=== PATIENT | male | born 1950 | race Caucasian/White ===

== ENCOUNTER 2023-03-07 13:29 | Emergency (ER) | payer OTHER ==
[2023-03-07] MEDS ORDERED: ONDANSETRON 4 MG/2 ML VIAL ONE (14:02)
[2023-03-07] MEDS ORDERED: NA CHLORIDE 0.9% 1,000 ML ONE (14:03)
[2023-03-07 14:11] LABS: Absolute Lymphocytes (CBC) 2.4 K/uL (0.7-4.9); Hematocrit 40.5 % (39.6-49.0); Lymphocytes % 31.6 % (15.3-44.8); MCV 92.6 fL (80-100); MPV 7.2 fL (7.6-11.3); RBC Red Blood Cell Count 4.37 M/uL (4.33-5.43)
--- NOTE | 2023-03-07 14:12 | RAD REPORT ---
EXAM DESCRIPTION: CT - Head Brain Wo Cont - 03/07/2023 2:07 pm CLINICAL HISTORY: SYNCOPE Headache, drowsiness, syncope COMPARISON: Head Brain Wo Cont dated 04/24/2017; HEAD BRAIN W O CONTRAST dated 03/17/2014 TECHNIQUE: All CT scans are performed using dose optimization technique as appropriate and may inclu de automated exposure control or mA/KV adjustment according to patient size. FINDINGS: No intracranial hemorrhage, hydrocephalus or extra-axial fluid collection.No areas of brai n edema or evidence of midline shift. The paranasal sinuses and mastoids are clear. The calvarium is intact. IMPRESSION: No acute intracranial abnormality.
[2023-03-07 14:26] LABS: Albumin 3.6 g/dL (3.4-5.0); Bilirubin Direct 0.1 mg/dL (0-0.2); Bilirubin Indirect, Calculated 0.5 mg/dL (0.2-0.8); Bilirubin Total 0.6 mg/dL (0.2-1.0); Magnesium 2.1 mg/dL (1.6-2.4); Potassium 3.9 mEq/L (3.5-5.1); Protein, Total 6.8 g/dL (6.4-8.2); Troponin High Sensitivity 3.2 pg/mL (<58.9)
--- NOTE | 2023-03-07 14:51 | ER ---
Nurse's Notes [facility] Name: Patrick Jones Age: 72 yrs Sex: Male : 1950 Arrival Date: 03/07/2023 Time: 13:29 Bed 2 Private MD: Diagnosis: Near syncope, lightheadedness, nausea Presentation: 03/07 13:37 Chief complaint: EMS states: pt was at lunch and started to feel like he was going to iw pass out , felt very nauseous, has had similar episodes in the past due to "orthostatic problems". Coronavirus screen: At this time, the client does not indicate any symptoms associated with coronavirus-19. Ebola Screen: Patient negative for fever greater than or equal to 101.5 degrees Fahrenheit, and additional compatible Ebola Virus Disease symptoms Patient denies exposure to infectious person. Patient denies travel to an Ebola-affected area in the 21 days before illness onset. No symptoms or risks identified at this time. Initial Sepsis Screen: Does the patient meet any 2 criteria? No. Patient's initial sepsis screen is negative. Does the patient have a suspected source of infection? No. Patient's initial sepsis screen is negative. Risk Assessment: Do you want to hurt yourself or someone else? Patient reports no desire to harm self or others. Onset of symptoms was March 07, 2023. 13:37 Method Of Arrival: EMS: [facility] 13:37 Acuity: SAMIR 3 iw Triage Assessment: 15:06 GI: Reports. iw Historical: - Allergies: 13:45 No Known Allergies; iw - Home Meds: 14:16 None [Active]; iw - PMHx: 14:16 None; iw - PSHx: 14:16 None; iw - Immunization history:: Adult Immunizations unknown. - Social history:: Smoking status: Patient denies any tobacco usage or history of. Screenin:59 [facility] ED Fall Risk Assessment (Adult) History of falling in the last 3 months, iw including since admission. Abuse screen: Denies threats or abuse. Denies injuries from another. Nutritional screening: No deficits noted. Tuberculosis screening: No symptoms or risk factors identified. Assessment: 13:59 General: Appears in no apparent distress. Behavior is calm, cooperative. Pain: Denies iw pain. Neuro: Level of Consciousness is awake, alert, obeys commands. Cardiovascular: Patient's skin is warm and dry. GI: Abdomen is flat, non-distended. Derm: Skin is intact, is healthy with good turgor. Musculoskeletal: Range of motion: intact in all extremities. 14:15 Reassessment: Patient appears in no apparent distress at this time. Patient and/or iw family updated on plan of care and expected duration. Pain level reassessed. Patient is alert, oriented x 3, equal unlabored respirations, skin warm/dry/pink. Patient states symptoms have not improved. Vital Signs: 13:37 BP 109 / 71; Pulse 57; Resp 19; Temp 98.1; Pulse Ox 98% on R/A; Pain 0/10; iw 14:16 BP 125 / 81; Pulse 59; Resp 16; Pulse Ox 100% on R/A; Pain 0/10; iw 13:37 Pain Scale: Adult iw 14:16 Pain Scale: Adult iw ED Course: 13:34 Patient arrived in ED. iw 13:34 Lisbeth Welsh MD is Attending Physician. sp3 13:37 Rosemarie Garcia, JADA is Primary Nurse. iw 13:40 Triage completed. iw 13:40 Arm band placed on. iw 13:50 Initial lab(s) drawn, by me, sent to lab. Inserted saline lock: 20 gauge in right iw antecubital area, using aseptic technique. 14:09 CT Head Brain wo Cont In Process Unspecified. EDMS 15:05 No provider procedures requiring assistance completed. IV discontinued, intact, iw bleeding controlled, No redness/swelling at site. Pressure dressing applied. 15:06 Patient has correct armband on for positive identification. iw Administered Medications: 14:20 Drug: NS 0.9% IV 1000 ml Route: IV; Rate: 1 bolus; Site: right antecubital; sc3 15:04 Follow up: IV Status: Completed infusion iw 14:20 Drug: Ondansetron IVP 4 mg Route: IVP; Site: right antecubital; sc3 15:00 Follow up: Response: No adverse reaction iw Medication: 13:59 VIS not applicable for this client. iw Outcome: 14:50 Discharge ordered by . sp3 15:05 Discharged to home ambulatory, with family. iw 15:05 Condition: good 15:05 Discharge instructions given to patient. 15:06 Patient left the ED. iw Signatures: Dispatcher [employer] Rosemarie Cleary, RN RN iw Lisbeth Welsh MD MD sp3 Catalino Portillo RN RN sc3 Corrections: (The following items were deleted from the chart) 14:48 13:37 BP 109 / 71; Pulse 57bpm; Resp 19bpm; Pulse Ox 98% RA; iw iw
--- NOTE | 2023-03-07 14:51 | EDPHYS ---
Physician Documentation [facility] Name: Patrick Jones Age: 72 yrs Sex: Male : 1950 Arrival Date: 03/07/2023 Time: 13:29 Bed 2 Private MD: ED Physician Lisbeth Welsh HPI: 03/07 13:57 This 72 yrs old Male presents to ER via EMS with complaints of Near Syncope, Nausea. sp3 13:57 72-year-old male with no medical problems and on no medications presents to the ED with sp3 chief complaint near syncope and nausea. Patient states that he gets this "every couple of years" and has had an extensive work-up with neurology, cardiology and multiple scans and MRIs which are always normal. He states it normally just self resolves slowly over time. He had no full syncope and there was no prodrome to his episode. He was eating at a restaurant when this occurred. He currently denies any headache, vertigo, dizziness, neck pain, facial pain, chest pain, shortness of breath, abdominal pain, actual vomiting, diarrhea, focal neurodeficit, weakness, rash, known sick contacts, travel history, known bad food, or any other signs or symptoms on ROS at this time. His only ongoing symptoms are nausea and mild generalized weakness.. Historical: - Allergies: 13:45 No Known Allergies; iw - Home Meds: 14:16 None [Active]; iw - PMHx: 14:16 None; iw - PSHx: 14:16 None; iw - Immunization history:: Adult Immunizations unknown. - Social history:: Smoking status: Patient denies any tobacco usage or history of. ROS: 13:59 Constitutional: Negative for fever, chills, and weight loss, Eyes: Negative for injury, sp3 pain, redness, and discharge, ENT: Negative for injury, pain, and discharge, Neck: Negative for injury, pain, and swelling, Cardiovascular: Negative for chest pain, palpitations, and edema, Respiratory: Negative for shortness of breath, cough, wheezing, and pleuritic chest pain, Back: Negative for injury and pain, : Negative for injury, bleeding, discharge, and swelling, MS/Extremity: Negative for injury and deformity, Skin: Negative for injury, rash, and discoloration, Psych: Negative for depression, anxiety, suicide ideation, homicidal ideation, and hallucinations, Allergy/Immunology: Negative for hives, rash, and allergies, Endocrine: Negative for neck swelling, polydipsia, polyuria, polyphagia, and marked weight changes, Hematologic/Lymphatic: Negative for swollen nodes, abnormal bleeding, and unusual bruising. 13:59 All other systems are negative. Exam: 13:59 Constitutional: This is a well developed, well nourished patient who is awake, alert, sp3 and in no acute distress. Head/Face: Normocephalic, atraumatic. Eyes: Pupils equal round and reactive to light, extra-ocular motions intact. Lids and lashes normal. Conjunctiva and sclera are non-icteric and not injected. Cornea within normal limits. Periorbital areas with no swelling, redness, or edema. ENT: Nares patent. No nasal discharge, no septal abnormalities noted. External auditory canals are clear. Oropharynx with no redness, swelling, or masses, exudates, or evidence of obstruction, uvula midline. Mucous membranes moist. Neck: Trachea midline, no thyromegaly or masses palpated, and no cervical lymphadenopathy. Supple, full range of motion without nuchal rigidity, or vertebral point tenderness. No Meningismus. Chest/axilla: Normal chest wall appearance and motion. Nontender with no deformity. No lesions are appreciated. Cardiovascular: Regular rate and rhythm with a normal S1 and S2. No gallops, murmurs, or rubs. Normal PMI, no JVD. No pulse deficits. Respiratory: Lungs have equal breath sounds bilaterally, clear to auscultation and percussion. No rales, rhonchi or wheezes noted. No increased work of breathing, no retractions or nasal flaring. Abdomen/GI: Soft, non-tender, with normal bowel sounds. No distension or tympany. No guarding or rebound. No evidence of tenderness throughout. Back: No spinal tenderness. No costovertebral tenderness. Full range of motion. Skin: Warm, dry with normal turgor. Normal color with no rashes, no lesions, and no evidence of cellulitis. MS/ Extremity: Pulses equal, no cyanosis. Neurovascular intact. Full, normal range of motion. Neuro: Awake and alert, GCS 15, oriented to person, place, time, and situation. Cranial nerves II-XII grossly intact. Motor strength 5/5 in all extremities. Sensory grossly intact. Cerebellar exam normal. Normal gait. Psych: Awake, alert, with orientation to person, place and time. Behavior, mood, and affect are within normal limits. 13:59 ECG was reviewed by the Attending Physician. EKG demonstrates normal sinus rhythm at 60 bpm with normal intervals, normal QRS, normal axis, normal ST/T-segment's without evidence of acute ischemia. Vital Signs: 13:37 BP 109 / 71; Pulse 57; Resp 19; Temp 98.1; Pulse Ox 98% on R/A; Pain 0/10; iw 14:16 BP 125 / 81; Pulse 59; Resp 16; Pulse Ox 100% on R/A; Pain 0/10; iw 13:37 Pain Scale: Adult iw 14:16 Pain Scale: Adult iw MDM: 13:37 Patient medically screened. sp3 14:00 Data reviewed: vital signs, nurses notes, EMS record, lab test result(s), EKG, sp3 radiologic studies. ED course: 72-year-old male with no past medical history presents with near syncope and nausea. Given his past recurrent episodes of this, we will not do an extensive work-up. Will obtain CT scan of the head, laboratory values and an EKG. Zofran and IV fluids will be given for general supportive care. I believe this will self resolve over the next few hours and patient should be able to be safely discharged home. I am not highly concerned for cranial hemorrhage, acute coronary syndrome, CVA/TIA spectrum, infection, sepsis, shock, significant electrolyte abnormality, or any other concerning pathology at this time. Patient is in agreement with this and joint decision-making was used to lead us to this plan. All questions have been answered and disposition will be based on work-up and patient course.. 14:47 ED course: Entire work-up was negative including CT scan and all laboratory values and sp3 troponin. Will reevaluate patient and safely discharge him once he feels better.. 03/07 13:37 Order name: Basic Metabolic Panel; Complete Time: 14:46 sp3 03/07 13:37 Order name: CBC with Diff; Complete Time: 14:46 sp3 03/07 13:37 Order name: LFT's; Complete Time: 14:46 sp3 03/07 13:37 Order name: Magnesium; Complete Time: 14:46 sp3 03/07 13:37 Order name: PT-INR; Complete Time: 14:46 sp3 03/07 13:37 Order name: Troponin HS; Complete Time: 14:46 sp3 03/07 13:37 Order name: Lipase; Complete Time: 14:46 sp3 03/07 13:37 Order name: CT Head Brain wo Cont; Complete Time: 14:46 sp3 03/07 13:37 Order name: EKG; Complete Time: 13:37 sp3 03/07 13:37 Order name: Cardiac monitoring; Complete Time: 14:20 sp3 03/07 13:37 Order name: EKG - Nurse/Tech; Complete Time: 13:59 sp3 03/07 13:37 Order name: IV Saline Lock; Complete Time: 13:45 sp3 03/07 13:37 Order name: Labs collected and sent; Complete Time: 13:45 sp3 03/07 13:37 Order name: O2 Sat Monitoring; Complete Time: 13:45 sp3 Administered Medications: 14:20 Drug: NS 0.9% IV 1000 ml Route: IV; Rate: 1 bolus; Site: right antecubital; sc3 15:04 Follow up: IV Status: Completed infusion iw 14:20 Drug: Ondansetron IVP 4 mg Route: IVP; Site: right antecubital; sc3 15:00 Follow up: Response: No adverse reaction iw Disposition Summary: 03/07/23 14:50 Discharge Ordered Location: Home sp3 Condition: Stable sp3 Diagnosis - Near syncope, lightheadedness, nausea sp3 Followup: sp3 - With: Private Physician - When: Upon discharge from the Emergency Department - Reason: Continuance of care Discharge Instructions: - Discharge Summary Sheet sp3 - Near-Syncope sp3 Forms: - Medication Reconciliation Form sp3 - Thank You Letter sp3 - Antibiotic Education sp3 - Prescription Opioid Use sp3 Signatures: Dispatcher [employer] Rosemarie Cleary, RN JADA iw Lisbeth Welsh MD MD sp3 Catalino Portillo RN RN la3
[2023-03-07 15:48] VITALS: TEMP 98.1
[2023-03-07 15:54] VITALS: BP 125/81; O2SAT 100
--- NOTE | 2023-03-11 17:58 | EKG ---
Test Date: 2023-03-07 Test Time: 13:54:28 Learning Designer: ALFNOZO MEASUREMENT RESULTS: Intervals: Rate: 59 ID: [id number] QRSD: 86 QT: 438 QTc: 433 [place]: P: 59 ID: [id number] QRS: 58 T: 50 INTERPRETIVE STATEMENTS: Sinus bradycardia Otherwise normal ECG Compared to ECG 04/24/2017 17:43:48 No significant changes Electronically Signed On 03-11-23 17:52:49 CDT by Anthony Easley
== END 2023-03-07 15:06 | disposition home or self-care (01) ==
LOC: ER 13:29
DX: R55 Syncope and collapse (principal); R11.0 Nausea; R42 Dizziness and giddiness
CPT/HCPCS: 96361; 93005; 85025; 80048; 36415; 83735; 85610; 80076; 84484; 83690; 70450; 96374; 99284; J2405; J7030